=== PATIENT | male | born 1970 | race African-American/Black ===

== ENCOUNTER 2018-05-11 12:00 | Emergency (ER) | payer MEDICAID, OTHER ==
[~2018-05-11] VITALS: Ht 175.3 cm; Wt 70.0 kg
[2018-05-11] MEDS ORDERED: ACETAMINOPHEN WITH CODEINE 300/30MG TABLET PO ONE (15:00)
[2018-05-11 16:00] VITALS: BP 128/76
[2018-05-11] MEDS ORDERED: RIVAROXABAN 15 MG TABLET PO ONE (16:30)
== END 2018-05-11 16:30 | disposition home or self-care (01) ==
LOC: ER 15:14
DX: I82.511 Chronic embolism and thrombosis of right femoral vein (principal); F12.90 Cannabis use, unspecified, uncomplicated; Z87.828 Personal history of other (healed) physical injury and trauma; Z98.890 Other specified postprocedural states
CPT/HCPCS: 93971; 99284; Z7610